=== PATIENT | male | born 1990 | race Caucasian/White ===

== ENCOUNTER → 2019-11-19 13:17 | Outpatient (CLI) | payer OTHER, SELFPAY ==
--- NOTE | ~2019-11-19 | XR_ITS ---
XR_[id number]_CR DATE: 11/19/2019 13:55 INDICATION: Acute left shoulder pain, left arm numbness TECHNIQUE: Open-mouth, AP, lateral, swimmer views COMPARISON: None FINDINGS: There is mild reversal of cervical curvature. C1 and C2 are normally aligned and the odontoid process is intact. No fracture or dislocation or lock ed facet or prevertebral soft tissue swelling. Cervical interspaces are well preserved. IMPRESSION: Reversal cervical curvature; otherwise negative Reviewed, dictated and finalized at [facility]. Reviewed, dictated and finalized at [facility].
== END ==
DX: M25.512 Pain in left shoulder (principal); M53.82 Other specified dorsopathies, cervical region
CPT/HCPCS: 72040